=== PATIENT | male | born 1965 | race Caucasian/White ===

== ENCOUNTER 2022-12-03 14:15 | Emergency (ER) | payer BC, SELFPAY ==
[2022-12-03 14:24] VITALS: BP 153/100; PULSE 70; RESP 16; TEMP 36.6; O2SAT 100
--- NOTE | 2022-12-03 14:25 | ED.GENADULT ---
HPI - General Adult General Chief complaint: Unspecified Stated complaint: hemmorhid Time Seen by Provider: 12/03/22 14:30 Source: patient Mode of arrival: ambulatory Limitations: no limitations History of Present Illness HPI narrative: Simone is a 57-year-old male patient presenting to the clinic today with complaints of a possible bleeding hemorrhoid. He reports he started having some rectal discomfort this morning. Noticed it was bleeding after wiping. Denies any abdominal pain or pain during his bowel movement. Has applied preparation H and this helped alleviate some of his symptoms. Review of Systems Review of Systems: Pertinent positives per HPI. Patient denies any fever, chills, rash, headache, visual changes, dizziness, cough, runny nose, sore throat, shortness of breath, chest pain, palpitations, nausea, vomiting, diarrhea, constipation, abdominal pain, or any urinary issues. PMFSH Comments At the time of my signature, I reviewed and agree with the nursing past medical, surgical, social, and family history. There is no relevant family history pertinent to the patient complaint. Exam Narrative: General: Well-developed, well nourished, in no apparent distress. Head: Normocephalic, atraumatic. Cardio: Regular rate and rhythm, s1 and s2 normal, no murmur appreciated. Resp: Clear to auscultation bilaterally, no rhonchi, rales, wheezing or rubs. Abdomen: Soft, pliable, bowel sounds present in all quadrants, non-tender to palpation, no organomegly, no CVAT tenderness. Rectal: Bleeding external hemorrhoid noted at 2:00. Tender to palpation-nonthrombosed Course Course Emergency Course: Portions of this record may have been created with voice recognition software. Level of Care: Express Care Visit Vital Signs Vital signs: Vital Signs Temperature 36.6 C 12/03/22 14:24 Pulse Rate 70 12/03/22 14:24 Respiratory Rate 16 12/03/22 14:24 Blood Pressure 153/100 H 12/03/22 14:24 Pulse Oximetry 100 12/03/22 14:24 Temperature 36.6 C 12/03/22 14:24 Pulse Rate 70 12/03/22 14:24 Respiratory Rate 16 12/03/22 14:24 Blood Pressure 153/100 H 12/03/22 14:24 Pulse Oximetry 100 12/03/22 14:24 Vital signs reviewed Medical Decision Making MDM Narrative Medical decision making narrative: At the time of visit patient is resting in the exam room. Patient has an enlarged bleeding hemorrhoid at 2:00. No active bleeding currently. Patient has used preparation H gel and this has relieved some of his symptoms. Will send in prescription for Anusol cream and lidocaine gel. Supportive measures were discussed with the patient he voiced understanding of discharge instructions and agrees to treatment plan Differential Diagnosis Differential Diagnosis: Rectal fissure, external bleeding hemorrhoid, internal bleeding hemorrhoids, GI bleed Vital Signs Vital Signs: Vital Signs Temperature 36.6 C 12/03/22 14:24 Pulse Rate 70 12/03/22 14:24 Respiratory Rate 16 12/03/22 14:24 Blood Pressure 153/100 H 12/03/22 14:24 Pulse Oximetry 100 12/03/22 14:24 Temperature 36.6 C 12/03/22 14:24 Pulse Rate 70 12/03/22 14:24 Respiratory Rate 16 12/03/22 14:24 Blood Pressure 153/100 H 12/03/22 14:24 Pulse Oximetry 100 12/03/22 14:24 Discharge Plan Discharge Clinical Impression: External hemorrhoid, bleeding Patient Disposition: Home, Self-Care Condition: Stable Instructions: Antibiotic Form, Hemorrhoids (ED) Additional Instructions: Increase fluids and stay well hydrated Increase fiber in your diet Take stool softeners as needed May try tucks pads to help alleviate pain Apply Anusol cream as directed Apply lidocaine gel as directed May take Tylenol/Motrin as needed for pain as well. Follow-up with your PCP in 3 to 5 days if symptoms persist or sooner if they worsen Prescriptions: New hydrocortisone [Anusol-HC] 2.5 % cream with perineal applicator
== END 2022-12-03 14:49 | disposition home or self-care (01) ==
PROVIDERS: Emergency Provider Nurse Practitioner Family
DX: K64.4 Residual hemorrhoidal skin tags (principal)
CPT/HCPCS: 99213; G0463